=== PATIENT | female | born 2000 | race Caucasian/White ===

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

== ENCOUNTER 2021-10-05 11:11 | Emergency (ER) | payer OTHER ==
[2021-10-05 11:24] VITALS: BP 115/76; PULSE 78; TEMP 98.5; BMI 18.6
[2021-10-05 13:29] LABS: HCG,QUALITATIVE URINE Positive
[2021-10-05 13:30] LABS: PH,URINE 5.5 (5.0-8.0); URINE APPEARANCE CLEAR; URINE BILIRUBIN NEGATIVE (NEGATIVE); URINE COLOR YELLOW; URINE GLUCOSE (UA) NEGATIVE (NEGATIVE); URINE KETONE 1+ (NEGATIVE); URINE LEUK ESTERASE NEGATIVE (NEGATIVE); URINE NITRITE NEGATIVE (NEGATIVE); URINE PROTEIN TRACE (NEGATIVE)
[2021-10-05 15:17] LABS: BASO % 0.7 % (0-2.0); EOS % 1.2 % (0-4.5); HEMATOCRIT 38.4 % (32.4-45.2); HEMOGLOBIN 12.9 GM/dL (10.7-15.3); LYMPH % 32.3 % (8-40); MCH 30.3 pg (25.7-33.7); MCHC 33.5 g/dl (32.0-36.0); MEAN CELL VOLUME 90.2 fl (80-96); MEAN PLT VOLUME 10.2 fl (7.5-11.1); NEUT % 56.8 % (42.8-82.8); PLATELET COUNT 286 10^3/uL (134-434); RBC 4.26 M/mm3 (3.60-5.2); RDW 13.7 % (11.6-15.6); WHITE BLOOD COUNT 6.5 K/mm3 (4.0-10.0)
[2021-10-05 15:27] LABS: CALCIUM 8.9 mg/dL (8.5-10.1)
[2021-10-05 15:28] LABS: ALBUMIN 3.2 g/dl (3.4-5.0); BLOOD UREA NITROGEN 7.4 mg/dL (7-18)
[2021-10-05 15:31] LABS: CREATININE 0.5 mg/dL (0.55-1.3)
[2021-10-05 15:32] LABS: BILIRUBIN,TOTAL 0.4 mg/dL (0.2-1)
[2021-10-05 15:33] LABS: TOT PROT 6.7 g/dl (6.4-8.2)
== END 2021-10-05 15:55 | disposition home or self-care (01) ==
LOC: JERFT 11:11 → JER 11:11 → JERFT 15:55
DX: O26.899 Other specified pregnancy related conditions, unspecified trimester (principal); R10.84 Generalized abdominal pain; Z3A.00 Weeks of gestation of pregnancy not specified
CPT/HCPCS: 36415; 76817-TC; 80053; 81003; 84702; 84703; 85025; 87086; 99284-25

== ENCOUNTER 2021-10-06 22:28 | Emergency (ER) | payer OTHER ==
[2021-10-06 22:41] VITALS: BP 116/77; PULSE 101; TEMP 97; BMI 17.4
[2021-10-06] MEDS ORDERED: ACETAMINOPHEN 500 MG TABLET (FP) PO ONE (23:44)
[2021-10-07] MEDS ORDERED: ACETAMINOPHEN 325 MG TABLET (FP) ONE (00:28)
== END 2021-10-07 01:44 | disposition left against medical advice (07) ==
LOC: JER 22:28
DX: R10.9 Unspecified abdominal pain (principal)
CPT/HCPCS: 99284-25

== ENCOUNTER 2023-03-09 11:56 | Emergency (ER) | payer OTHER ==
[2023-03-09 12:13] VITALS: BP 117/66; PULSE 98; RESP 16; TEMP 98.4; BMI 19.9
[2023-03-09 12:37] LABS: BASO % 0.6 % (0-2.0); EOS % 1.6 % (0-4.5); HEMATOCRIT 35.2 % (32.4-45.2); HEMOGLOBIN 11.9 GM/dL (10.7-15.3); LYMPH % 27.8 % (8-40); MCH 28.8 pg (25.7-33.7); MCHC 33.7 g/dl (32.0-36.0); MEAN CELL VOLUME 85.5 fl (80-96); MEAN PLT VOLUME 9.6 fl (7.5-11.1); MONO % 7.3 % (3.8-10.2); NEUT % 62.7 % (42.8-82.8); PLATELET COUNT 232 10^3/uL (134-434); RBC 4.11 M/mm3 (3.60-5.2); RDW 14.2 % (11.6-15.6); WHITE BLOOD COUNT 5.9 K/mm3 (4.0-10.0)
[2023-03-09 12:57] LABS: EPI CELLS >36 /uL (0-25.1); HYALINE CASTS 8 /uL (0-3.1); PH,URINE 5.5 (5.0-8.0); URINE APPEARANCE CLOUDY; URINE BACTERIA 332 /uL (0-1359); URINE BILIRUBIN NEGATIVE (NEGATIVE); URINE COLOR DK YELLOW; URINE GLUCOSE (UA) NEGATIVE (NEGATIVE); URINE KETONE 1+ (NEGATIVE); URINE LEUK ESTERASE 2+ (NEGATIVE); URINE NITRITE NEGATIVE (NEGATIVE); URINE PROTEIN 1+ (NEGATIVE); URINE RBC 19 /uL (0-23.9); URINE WBC 40 /uL (0-25.8)
[2023-03-09 13:04] LABS: POTASSIUM 4.3 mmol/L (3.5-5.1)
[2023-03-09 13:05] LABS: CALCIUM 9.3 mg/dL (8.5-10.1)
[2023-03-09 13:06] LABS: BLOOD UREA NITROGEN 6.4 mg/dL (7-18)
[2023-03-09 13:09] LABS: CREATININE 0.4 mg/dL (0.55-1.3)
== END 2023-03-09 19:31 | disposition home or self-care (01) ==
LOC: JER 11:56
DX: O20.9 Hemorrhage in early pregnancy, unspecified (principal); Z3A.08 8 weeks gestation of pregnancy
CPT/HCPCS: 36415; 76817-TC; 80048; 81003; 84702; 85025; 86850; 86900; 86901; 87086; 87491; 87591; 99284-25

== ENCOUNTER 2023-05-29 03:24 | Emergency (ER) | payer OTHER ==
[2023-05-29 03:29] VITALS: PULSE 85; BMI 18.6
[2023-05-29 06:54] VITALS: BP 108/67; RESP 20; TEMP 98.3
== END 2023-05-29 06:45 | disposition home or self-care (01) ==
LOC: JER 03:24
DX: O20.9 Hemorrhage in early pregnancy, unspecified (principal); Z3A.19 19 weeks gestation of pregnancy
CPT/HCPCS: 76815-TC; 99284-25

== ENCOUNTER 2023-05-30 10:23 | Emergency (ER) | payer OTHER ==
[2023-05-30 10:42] VITALS: BP 106/64; PULSE 94; RESP 19; TEMP 98.3; BMI 19.7
[2023-05-30] MEDS ORDERED: SILVER NITRATE 75% APPLIC STCK 1 PKT EACH ONE (11:21)
[2023-05-30] MEDS ORDERED: SILVER NITRATE 75% APPLIC STCK 1 PKT EACH TP ONE (11:25)
[2023-05-30 11:42] LABS: HEMATOCRIT 34.9 % (32.4-45.2); HEMOGLOBIN 11.5 GM/dL (10.7-15.3); MCH 30.3 pg (25.7-33.7); MCHC 32.9 g/dl (32.0-36.0); PLATELET COUNT 190 10^3/uL (134-434); RBC 3.79 M/mm3 (3.60-5.2); RDW 15.1 % (11.6-15.6); WHITE BLOOD COUNT 9.1 K/mm3 (4.0-10.0)
== END 2023-05-30 12:45 | disposition home or self-care (01) ==
LOC: JER 10:23 → JERFT 10:23
PROC: 093K7ZZ Control Bleeding in Nasal Mucosa and Soft Tissue, Via Natural or Artificial Opening (ICD-10-PCS; principal; 2023-05-30)
DX: R04.0 Epistaxis (principal)
CPT/HCPCS: 36415; 85027; 99283-25

== ENCOUNTER 2023-07-29 15:05 | Emergency (ER) | payer OTHER ==
[2023-07-29 15:24] VITALS: BMI 21.1
[2023-07-29 17:05] LABS: VENOUS BASE EXCESS -0.1 mmol/L (-2-2); VENOUS O2 SATURATION 49.9 % (70-80); VENOUS PCO2 45.2 mmHg (38-52); VENOUS PH 7.369 (7.310-7.410)
[2023-07-29 17:11] LABS: BASO % 0.6 % (0-2.0); HEMATOCRIT 34.6 % (32.4-45.2); HEMOGLOBIN 11.9 GM/dL (10.7-15.3); LYMPH % 20.6 % (8-40); MCH 31.5 pg (25.7-33.7); MCHC 34.2 g/dl (32.0-36.0); MEAN CELL VOLUME 92.1 fl (80-96); MONO % 7.9 % (3.8-10.2); NEUT % 69.9 % (42.8-82.8); RBC 3.76 M/mm3 (3.60-5.2); RDW 13.3 % (11.6-15.6); WHITE BLOOD COUNT 9.4 K/mm3 (4.0-10.0)
[2023-07-29 17:24] LABS: POTASSIUM 3.4 mmol/L (3.5-5.1)
[2023-07-29 17:27] LABS: BLOOD UREA NITROGEN 7.3 mg/dL (7-18); CALCIUM 8.9 mg/dL (8.5-10.1)
[2023-07-29 17:30] LABS: CREATININE 0.5 mg/dL (0.55-1.3)
[2023-07-29 17:32] LABS: BILIRUBIN,TOTAL 0.4 mg/dL (0.2-1)
[2023-07-29 17:35] LABS: MEAN PLT VOLUME 11.9 fl (7.5-11.1); PLATELET COUNT 139 10^3/uL (134-434); PLATELET ESTIMATE DECREASED
[2023-07-29 18:07] LABS: THROAT:GRP A STREP NOT DETECTED (NOTDETECTED)
[2023-07-29 18:44] VITALS: BP 102/66; PULSE 94; RESP 18; TEMP 98.5
== END 2023-07-29 19:40 | disposition home or self-care (01) ==
LOC: JER 15:05
DX: O26.893 Other specified pregnancy related conditions, third trimester (principal); R06.02 Shortness of breath; R00.2 Palpitations; M79.661 Pain in right lower leg; O99.343 Other mental disorders complicating pregnancy, third trimester; F41.9 Anxiety disorder, unspecified; Z20.822 Contact with and (suspected) exposure to COVID-19; Z3A.28 28 weeks gestation of pregnancy
CPT/HCPCS: 0241U-QW; 36415; 80053; 82803; 85025; 87651; 93005; 93010; 93970-TC; 99285-25

== ENCOUNTER 2025-05-28 13:11 | Emergency (ER) | payer OTHER ==
[2025-05-28 13:20] VITALS: BP 110/67; PULSE 89; RESP 16; TEMP 98.3; BMI 23.6
[2025-05-28] MEDS ORDERED: FAMOTIDINE 20 MG TABLET ONE (14:14)
[2025-05-28] MEDS ORDERED: LORATADINE 10 MG TABLET ONE (14:14)
[2025-05-28] MEDS: FAMOTIDINE 20 MG TABLET PO ONE (14:25)
[2025-05-28] MEDS: LORATADINE 10 MG TABLET PO ONE (14:25)
== END 2025-05-28 14:32 | disposition home or self-care (01) ==
LOC: JERFT 13:11
DX: R21 Rash and other nonspecific skin eruption (principal); L29.9 Pruritus, unspecified
CPT/HCPCS: 87637-QW; 99283-25